=== PATIENT | female | born 1980 | race Caucasian/White ===

== ENCOUNTER 2018-12-25 18:35 | Emergency (ER) | payer MEDICAID, OTHER ==
[~2018-12-25] VITALS: Ht 157.5 cm; Wt 65.9 kg
[2018-12-25 18:51] VITALS: BP 114/64
[2018-12-25] MEDS ORDERED: BACI1PAC7 TP (20:26)
== END 2018-12-25 20:44 | disposition home or self-care (01) ==
LOC: ER 18:36
DX: L03.011 Cellulitis of right finger (principal); F17.200 Nicotine dependence, unspecified, uncomplicated; F12.90 Cannabis use, unspecified, uncomplicated; Z98.890 Other specified postprocedural states; Z79.899 Other long term (current) drug therapy
CPT/HCPCS: 99282

== ENCOUNTER 2019-01-05 15:29 | Emergency (ER) | payer MEDICAID, OTHER ==
[~2019-01-05] VITALS: Ht 157.5 cm; Wt 63.6 kg
[~2019-01-05 15:29] MED LIST: BACI1PAC7 TP
[2019-01-05 15:42] VITALS: BP 127/85
[2019-01-05] MEDS ORDERED: LIDOcaine 1% w/epiNEPHrine 1:200,000 30ml vial IM ONE (15:55)
[2019-01-05] MEDS ORDERED: CEPH-572 PO (16:07)
[2019-01-05] MEDS ORDERED: SULF1TAB49 PO (16:07)
== END 2019-01-05 16:57 | disposition home or self-care (01) ==
LOC: ER 15:30
DX: L03.011 Cellulitis of right finger (principal); F12.90 Cannabis use, unspecified, uncomplicated; Z86.14 Personal history of Methicillin resistant Staphylococcus aureus infection; Z98.890 Other specified postprocedural states; Z79.2 Long term (current) use of antibiotics
CPT/HCPCS: 10060; 99283; J3490

== ENCOUNTER 2019-01-10 12:04 | Emergency (ER) | payer MEDICAID, OTHER ==
[~2019-01-10 12:04] MED LIST changes: +CEPH-572 PO; +SULF1TAB49 PO
--- NOTE | 2019-01-10 13:41 | NUR ---
NIL 1239 NIL 1255 NIL 1332
[2019-01-10] MEDS ORDERED: HYDR-3965 PO (17:39)
== END 2019-01-10 14:12 | disposition left against medical advice (07) ==
LOC: ER 12:05
DX: Z53.21 Procedure and treatment not carried out due to patient leaving prior to being seen by health care provider (principal)

== ENCOUNTER 2019-01-10 14:18 | Emergency (ER) | payer MEDICAID, OTHER ==
[~2019-01-10] VITALS: Ht 157.5 cm; Wt 65.0 kg
[2019-01-10 15:23] VITALS: BP 110/70
[2019-01-10 16:15] LABS: BASOPHILS % (AUTO) 0.5 % (0-1); EOSINOPHILS # (AUTO) 0.1 X10'3 (0-0.9); EOSINOPHILS % (AUTO) 1.3 % (0-6); HEMATOCRIT 33.6 % (35.0-45.0); HEMOGLOBIN 10.9 g/dl (12.0-16.0); LYMPHOCYTES # (AUTO) 1.7 X10'3 (1.1-4.8); LYMPHOCYTES % (AUTO) 42.4 % (21-51); MEAN CORPUSCULAR HEMOGLOBIN 33.4 PG (27.0-31.0); MEAN CORPUSCULAR HGB CONC 32.4 g/dL (33.0-36.5); MEAN CORPUSCULAR VOLUME 103.3 FL (78-98); MEAN PLATELET VOLUME 7.5 FL (7.4-10.4); MONOCYTES # (AUTO) 0.3 X10'3 (0-0.9); MONOCYTES % (AUTO) 7.8 % (2-12); NEUTROPHILS # (AUTO) 1.8 X10'3 (1.8-7.7); PLATELET COUNT 56 X10'3 (140-440); RED BLOOD COUNT 3.25 X10'6 (4.20-5.60); RED CELL DISTRIBUTION WIDTH 15.5 % (11.5-14.5); WHITE BLOOD COUNT 3.9 X10'3 (4.5-11.0)
[2019-01-10 16:31] LABS: ALANINE AMINOTRANSFERASE 21 U/L (12-78); ALBUMIN 3.9 G/DL (3.4-5.0); ALBUMIN/GLOBULIN RATIO 1.1 (1.1-1.5); ALKALINE PHOSPHATASE 120 IU/L (46-116); ANION GAP 11 (8-16); ASPARTATE AMINO TRANSFERASE 9 U/L (10-37); BILIRUBIN,TOTAL 0.5 MG/DL (0.1-1.0); BLOOD UREA NITROGEN 9 MG/DL (7-18); BUN/CREATININE RATIO 10.6 (6.6-38.0); CALCIUM 9.3 MG/DL (8.5-10.1); CHLORIDE 95 MMOL/L (99-107); CREATININE 0.85 MG/DL (0.40-0.90); GLUCOSE 369 MG/DL (70-104); POTASSIUM 4.4 MMOL/L (3.5-5.1); SODIUM 131 MMOL/L (135-145); TOTAL CARBON DIOXIDE 24.8 MMOL/L (24-32); TOTAL PROTEIN 7.4 G/DL (6.4-8.2); eGFR 76 ML/MIN
[2019-01-10 16:48] LABS: INR 0.9 INR; PARTIAL THROMBOPLASTIN TIME 23 SECONDS (22-32); PROTHROMBIN TIME 9.6 SECONDS (9.0-12.0)
[2019-01-10] MEDS ORDERED: HYDR-3965 PO (17:39)
== END 2019-01-10 18:08 | disposition home or self-care (01) ==
LOC: ER 14:18
DX: L02.511 Cutaneous abscess of right hand (principal); F12.10 Cannabis abuse, uncomplicated; Z86.14 Personal history of Methicillin resistant Staphylococcus aureus infection
CPT/HCPCS: 26010; 36415; 71045; 73140; 80053; 83605; 84145; 85025; 85610; 85730; 87040; 99284

== ENCOUNTER 2019-01-12 14:02 | Emergency (ER) | payer MEDICAID, OTHER ==
[~2019-01-12] VITALS: Ht 157.5 cm; Wt 65.9 kg
[~2019-01-12 14:02] MED LIST changes: +HYDR-3965 PO
== END 2019-01-12 16:30 | disposition home or self-care (01) ==
LOC: ER 14:03
DX: L02.511 Cutaneous abscess of right hand (principal); Z48.01 Encounter for change or removal of surgical wound dressing; Z86.14 Personal history of Methicillin resistant Staphylococcus aureus infection; F12.90 Cannabis use, unspecified, uncomplicated; Z98.890 Other specified postprocedural states; Z79.899 Other long term (current) drug therapy
CPT/HCPCS: 99281

== ENCOUNTER 2019-01-18 17:45 | Emergency (ER) | payer MEDICAID, OTHER ==
[~2019-01-18] VITALS: Ht 157.5 cm; Wt 65.0 kg
[~2019-01-18 17:45] MED LIST changes: -CEPH-572 PO; -HYDR-3965 PO; -SULF1TAB49 PO
[2019-01-18] MEDS ORDERED: silver sulfadiazine cream 400gm jar TP STA (20:34)
[2019-01-18] MEDS ORDERED: bacitracin 15gm ointment TP ONE (20:35)
[2019-01-18] MEDS ORDERED: DOXY100C2 PO (20:56)
[2019-01-18 21:20] VITALS: BP 96/60
== END 2019-01-18 21:22 | disposition home or self-care (01) ==
LOC: ER 17:45
DX: L03.011 Cellulitis of right finger (principal); F12.90 Cannabis use, unspecified, uncomplicated; Z86.14 Personal history of Methicillin resistant Staphylococcus aureus infection
CPT/HCPCS: 99283

== ENCOUNTER 2019-01-25 11:01 | Emergency (ER) | payer OTHER ==
[~2019-01-25] VITALS: Ht 157.5 cm; Wt 65.0 kg
[~2019-01-25 11:01] MED LIST changes: +DOXY100C2 PO
[2019-01-25 11:14] VITALS: BP 95/58
[2019-01-25] MEDS ORDERED: CLIN150C2 PO (12:18)
[2019-01-25] MEDS ORDERED: DIPH-405 PO (14:15)
[2019-01-25] MEDS ORDERED: NAPR220T67 PO (14:15)
== END 2019-01-25 12:28 | disposition home or self-care (01) ==
LOC: ER 11:02
DX: M79.644 Pain in right finger(s) (principal); Z86.14 Personal history of Methicillin resistant Staphylococcus aureus infection; F12.90 Cannabis use, unspecified, uncomplicated; Z98.890 Other specified postprocedural states; Z79.899 Other long term (current) drug therapy
CPT/HCPCS: 73140; 99283

== ENCOUNTER 2019-01-25 13:19 | Inpatient (IN) | payer OTHER | END 2019-02-04 14:45 | disposition home or self-care (01) | LOC: ER 13:19 → ED HOLD 15:15 → ORTHO 4S 16:50 ==

== ENCOUNTER 2019-02-20 10:00 | Day surgery (SDC) | payer MEDICAID ==
[~2019-02-20 10:00] MED LIST changes: -BACI1PAC7 TP; +BACI28.42 TP; +CLIN150C2 PO; +DIPH-405 PO; -DOXY100C2 PO; +FLUC100T9 PO; +FOLI1TAB16 PO; +INSU100V11 SQ; +LACT1CAP26 PO; +LANC-571 TOP; +LANTUS SQ; +NAPR220T67 PO; +[UNRECOGNIZED DRUG - CODE] SQ
[2019-02-20] MEDS ORDERED: METF500T PO (10:35)
[2019-02-20] MEDS ORDERED: LIDOcaine/PRILOcaine 5gm cream TP ONE (12:01)
--- NOTE | 2019-02-20 12:30 | NUR ---
Patient ambulated independently accompanied by her from [facility] and was admitted to outpatient wound care for physician visit with Alfredo Hawkins MD. Dressing removed, wound cleansed. New patient assessment completed with review of patient's medical history and current medications. 1058 - blood glucose 169. Patient instructed that elevated blood sugars delay healing of the wound and can cause further complications including but not limited to amputation of toes or feet. 1155 - Dr. Hawkins at bedside accompanied by RN. Wound assessed, time out performed by MD/RN. Wound debrided as detailed in the physician progress/procedure note. Plan of care discussed with patient. Dressings placed per MD orders. Patient instructed on the signs and symptoms of infection and to call the Wound Center if any occur or to go to the ED if we are closed: Increased pain in wound Increase in drainage from the wound Redness in the skin surrounding the wound Bleeding from the wound Temperature of 101 or greater Patient instructed that the weight of their body puts a large amount of pressure on their wounds. This pressure keeps the new tissue from growing and inhibits new blood vessels from forming. Explained that, if they continue to bear weight on a body part that has a wound, the time it takes to heal the wound increases, the wound may get worse or the wound may not heal at all. Patient verbalized understanding of all discharge instructions and plan of care and ambulated independently accompanied by her out to [facility] in stable condition with no sign or symptom of distress at time of discharge.
== END 2019-02-20 12:16 | disposition home or self-care (01) ==
LOC: WOUND CARE 10:00
PROVIDERS: ATTEND Surgery
DX: E11.622 Type 2 diabetes mellitus with other skin ulcer (principal); L98.492 Non-pressure chronic ulcer of skin of other sites with fat layer exposed; E11.65 Type 2 diabetes mellitus with hyperglycemia; E11.40 Type 2 diabetes mellitus with diabetic neuropathy, unspecified; E11.52 Type 2 diabetes mellitus with diabetic peripheral angiopathy with gangrene; I96 Gangrene, not elsewhere classified; E11.69 Type 2 diabetes mellitus with other specified complication; M86.141 Other acute osteomyelitis, right hand; F17.210 Nicotine dependence, cigarettes, uncomplicated; F12.10 Cannabis abuse, uncomplicated; Z79.2 Long term (current) use of antibiotics; Z79.899 Other long term (current) drug therapy; Z71.6 Tobacco abuse counseling
CPT/HCPCS: 36416; 82948; A6021; A6206

== ENCOUNTER 2019-02-27 09:39 | Day surgery (SDC) | payer MEDICAID ==
[~2019-02-27 09:39] MED LIST changes: -INSU100V11 SQ; -LANTUS SQ; +METF500T PO
[2019-02-27] MEDS ORDERED: LIDOcaine/PRILOcaine 5gm cream TP ONE (09:57)
--- NOTE | 2019-02-27 11:15 | NUR ---
Patient ambulated independently from [facility] accompanied by her and was admitted to outpatient wound care for physician visit with Alfredo Hawkins MD. Dressing removed, wound cleansed and Emla cream applied per order. Patient assessed for changes in conditions, medications and medical history. 1025 - Dr. Hawkins at bedside accompanied by RN. Wound assessed, time out performed by MD/RN. Wound debrided as detailed in the physician progress/procedure note. Plan of care discussed with patient. Dressings placed per MD orders. Patient instructed on the signs and symptoms of infection and to call the Wound Center if any occur or to go to the ED if we are closed: Increased pain in wound Increase in drainage from the wound Redness in the skin surrounding the wound Bleeding from the wound Temperature of 101 or greater Patient instructed that the weight of their body puts a large amount of pressure on their wounds. This pressure keeps the new tissue from growing and inhibits new blood vessels from forming. Explained that, if they continue to bear weight on a body part that has a wound, the time it takes to heal the wound increases, the wound may get worse or the wound may not heal at all. Patient verbalized understanding of all discharge instructions and plan of care and ambulated independently out to [facility] accompanied by and is in stable condition with no sign or symptom of distress at time of discharge.
--- NOTE | 2019-02-27 15:22 | NUR ---
Blood glucose not assessed today. Addendum: 02/27/19 at 1522 by Gabby Sen RN Amended: Links added.
== END 2019-02-27 11:07 | disposition home or self-care (01) ==
LOC: WOUND CARE 09:39
PROVIDERS: ATTEND Surgery
DX: E11.622 Type 2 diabetes mellitus with other skin ulcer (principal); L98.492 Non-pressure chronic ulcer of skin of other sites with fat layer exposed; L03.011 Cellulitis of right finger; L03.012 Cellulitis of left finger; E11.65 Type 2 diabetes mellitus with hyperglycemia; E11.40 Type 2 diabetes mellitus with diabetic neuropathy, unspecified; E11.52 Type 2 diabetes mellitus with diabetic peripheral angiopathy with gangrene; I96 Gangrene, not elsewhere classified; E11.69 Type 2 diabetes mellitus with other specified complication; M86.141 Other acute osteomyelitis, right hand; F17.210 Nicotine dependence, cigarettes, uncomplicated; F12.10 Cannabis abuse, uncomplicated; Z79.2 Long term (current) use of antibiotics; Z79.899 Other long term (current) drug therapy; Z71.6 Tobacco abuse counseling
CPT/HCPCS: A6021; A6206

== ENCOUNTER 2019-03-06 09:56 | Day surgery (SDC) | payer MEDICAID ==
[2019-03-06] MEDS ORDERED: LIDOcaine/PRILOcaine 5gm cream TP ONE ×2 (10:14→10:50)
--- NOTE | 2019-03-06 11:30 | NUR ---
Patient ambulated independently accompanied by from [facility] and was admitted to outpatient wound care for physician visit with Alfredo Hawkins MD. Dressing removed, wound cleansed and Emla cream applied per order. Patient assessed for changes in conditions, medications and medical history. 1040 - blood glucose 211. Patient instructed that elevated blood sugars delay healing of the wound and can cause further complications including but not limited to amputation of toes or feet. 1044 - Dr. Hawkins at bedside accompanied by RN. Wound assessed, time out performed by MD/RN. Wound debrided as detailed in the physician progress/procedure note. Plan of care discussed with patient. Dressings placed per MD orders. Patient instructed on the signs and symptoms of infection and to call the Wound Center if any occur or to go to the ED if we are closed: Increased pain in wound Increase in drainage from the wound Redness in the skin surrounding the wound Bleeding from the wound Temperature of 101 or greater Patient instructed that the weight of their body puts a large amount of pressure on their wounds. This pressure keeps the new tissue from growing and inhibits new blood vessels from forming. Explained that, if they continue to bear weight on a body part that has a wound, the time it takes to heal the wound increases, the wound may get worse or the wound may not heal at all. Patient verbalized understanding of all discharge instructions and plan of care and ambulated independently accompanied by out to [facility] in stable condition with no sign or symptom of distress at time of discharge.
== END 2019-03-06 11:22 | disposition home or self-care (01) ==
LOC: WOUND CARE 09:56
PROVIDERS: ATTEND Surgery
DX: E11.622 Type 2 diabetes mellitus with other skin ulcer (principal); L98.492 Non-pressure chronic ulcer of skin of other sites with fat layer exposed; L03.011 Cellulitis of right finger; L03.012 Cellulitis of left finger; E11.65 Type 2 diabetes mellitus with hyperglycemia; E11.40 Type 2 diabetes mellitus with diabetic neuropathy, unspecified; E11.52 Type 2 diabetes mellitus with diabetic peripheral angiopathy with gangrene; I96 Gangrene, not elsewhere classified; E11.69 Type 2 diabetes mellitus with other specified complication; M86.141 Other acute osteomyelitis, right hand; F17.210 Nicotine dependence, cigarettes, uncomplicated; Z79.2 Long term (current) use of antibiotics; Z79.899 Other long term (current) drug therapy; Z71.6 Tobacco abuse counseling
CPT/HCPCS: 36416; 82948; A6206

== ENCOUNTER 2019-03-13 09:54 | Day surgery (SDC) | payer MEDICAID ==
[~2019-03-13 09:54] MED LIST changes: -CLIN150C2 PO
[2019-03-13] MEDS ORDERED: LIDOcaine/PRILOcaine 5gm cream TP ONE (10:34)
--- NOTE | 2019-03-13 12:34 | NUR ---
Patient ambulated independently accompanied by from [facility] and was admitted to outpatient wound care for physician visit with Alfredo Hawkins MD. Dressing removed, wound cleansed and Emla cream applied per order. Patient assessed for changes in conditions, medications and medical history. 1045 - blood glucose 226. Patient instructed that elevated blood sugars delay healing of the wound and can cause further complications including but not limited to amputation of toes or feet. 1045 - Dr. Hawkins at bedside accompanied by RN. Wound assessed, time out performed by MD/RN. Wound debrided as detailed in the physician progress/procedure note. Plan of care discussed with patient. Dressings placed per MD orders. Patient instructed on the signs and symptoms of infection and to call the Wound Center if any occur or to go to the ED if we are closed: Increased pain in wound Increase in drainage from the wound Redness in the skin surrounding the wound Bleeding from the wound Temperature of 101 or greater Patient instructed that the weight of their body puts a large amount of pressure on their wounds. This pressure keeps the new tissue from growing and inhibits new blood vessels from forming. Explained that, if they continue to bear weight on a body part that has a wound, the time it takes to heal the wound increases, the wound may get worse or the wound may not heal at all. Patient verbalized understanding of all discharge instructions and plan of care and ambulated independently accompanied by out to [facility] in stable condition with no sign or symptom of distress at time of discharge.
== END 2019-03-13 11:41 | disposition home or self-care (01) ==
LOC: WOUND CARE 09:54
PROVIDERS: ATTEND Surgery
DX: E11.622 Type 2 diabetes mellitus with other skin ulcer (principal); L98.492 Non-pressure chronic ulcer of skin of other sites with fat layer exposed; L03.011 Cellulitis of right finger; E11.65 Type 2 diabetes mellitus with hyperglycemia; E11.40 Type 2 diabetes mellitus with diabetic neuropathy, unspecified; E11.52 Type 2 diabetes mellitus with diabetic peripheral angiopathy with gangrene; I96 Gangrene, not elsewhere classified; E11.69 Type 2 diabetes mellitus with other specified complication; M86.141 Other acute osteomyelitis, right hand; F17.210 Nicotine dependence, cigarettes, uncomplicated; Z79.2 Long term (current) use of antibiotics; Z79.899 Other long term (current) drug therapy; Z71.6 Tobacco abuse counseling
CPT/HCPCS: 36416; 82948; 97597; A6021; A6206

== ENCOUNTER 2019-03-20 09:50 | Day surgery (SDC) | payer MEDICAID ==
--- NOTE | 2019-03-20 15:17 | NUR ---
Patient ambulated independently from [facility] and was admitted to outpatient wound care for physician visit with Alfredo Hawkins MD. Dressing removed, wound cleansed and lidocaine applied per order. Patient assessed for changes in conditions, medications and medical history. Dr. Hawkins at bedside accompanied by RN. Wound assessed, time out performed by MD/RN. Wound debrided as detailed in the physician progress/procedure note. Plan of care discussed with patient. Dressings placed per MD orders. Patient instructed on the signs and symptoms of infection and to call the Wound Center if any occur or to go to the ED if we are closed: Increased pain in wound Increase in drainage from the wound Redness in the skin surrounding the wound Bleeding from the wound Temperature of 101 or greater Patient instructed that elevated blood sugars delay healing of the wound and can cause further complications including but not limited to amputation of toes or feet. Patient instructed that the weight of their body puts a large amount of pressure on their wounds. This pressure keeps the new tissue from growing and inhibits new blood vessels from forming. Explained that, if they continue to bear weight on a body part that has a wound, the time it takes to heal the wound increases, the wound may get worse or the wound may not heal at all. Patient verbalized understanding of all discharge instructions and plan of care and ambulated independently out to [facility] in stable condition with no sign or symptom of distress at time of discharge. Addendum: 03/20/19 at 1518 by Amanda Mckenzie RN Amended: Links added.
== END 2019-03-20 11:05 | disposition home or self-care (01) ==
LOC: WOUND CARE 09:50
PROVIDERS: ATTEND Surgery
DX: E11.622 Type 2 diabetes mellitus with other skin ulcer (principal); L98.492 Non-pressure chronic ulcer of skin of other sites with fat layer exposed; L03.011 Cellulitis of right finger; L03.012 Cellulitis of left finger; E11.65 Type 2 diabetes mellitus with hyperglycemia; E11.40 Type 2 diabetes mellitus with diabetic neuropathy, unspecified; E11.52 Type 2 diabetes mellitus with diabetic peripheral angiopathy with gangrene; I96 Gangrene, not elsewhere classified; E11.69 Type 2 diabetes mellitus with other specified complication; M86.141 Other acute osteomyelitis, right hand; F17.210 Nicotine dependence, cigarettes, uncomplicated; Z79.2 Long term (current) use of antibiotics; Z79.899 Other long term (current) drug therapy; Z71.6 Tobacco abuse counseling
CPT/HCPCS: 36416; 82948; 97597; A6021; A6206

== ENCOUNTER 2019-03-27 09:50 | Day surgery (SDC) | payer MEDICAID ==
--- NOTE | 2019-03-27 15:20 | NUR ---
Patient ambulated independently from [facility] and was admitted to outpatient wound care for physician visit with Alfredo Hawkins MD. Dressing removed and wound cleansed. Patient assessed for changes in conditions, medications and medical history. Dr. Hawkins at bedside accompanied by RN. Wound assessed, time out performed by MD/RN. Wound debrided as detailed in the physician progress/procedure note. Plan of care discussed with patient. Dressings placed per MD orders. Patient instructed on the signs and symptoms of infection and to call the Wound Center if any occur or to go to the ED if we are closed: Increased pain in wound Increase in drainage from the wound Redness in the skin surrounding the wound Bleeding from the wound Temperature of 101 or greater Patient instructed that the weight of their body puts a large amount of pressure on their wounds. This pressure keeps the new tissue from growing and inhibits new blood vessels from forming. Explained that, if they continue to bear weight on a body part that has a wound, the time it takes to heal the wound increases, the wound may get worse or the wound may not heal at all. Patient verbalized understanding of all discharge instructions and plan of care and ambulated independently out to [facility] in stable condition with no sign or symptom of distress at time of discharge. Addendum: 03/27/19 at 1522 by Amanda Mckenzie RN Amended: Links added.
== END 2019-03-27 11:05 | disposition home or self-care (01) ==
LOC: WOUND CARE 09:50
PROVIDERS: ATTEND Surgery
DX: E11.622 Type 2 diabetes mellitus with other skin ulcer (principal); L98.492 Non-pressure chronic ulcer of skin of other sites with fat layer exposed; L03.011 Cellulitis of right finger; E11.65 Type 2 diabetes mellitus with hyperglycemia; E11.40 Type 2 diabetes mellitus with diabetic neuropathy, unspecified; E11.52 Type 2 diabetes mellitus with diabetic peripheral angiopathy with gangrene; I96 Gangrene, not elsewhere classified; E11.69 Type 2 diabetes mellitus with other specified complication; M86.141 Other acute osteomyelitis, right hand; F17.210 Nicotine dependence, cigarettes, uncomplicated; Z79.2 Long term (current) use of antibiotics; Z79.899 Other long term (current) drug therapy; Z71.6 Tobacco abuse counseling
CPT/HCPCS: 36416; 82948; 97597; A6021; A6206; A6212

== ENCOUNTER 2019-04-03 09:56 | Day surgery (SDC) | payer MEDICAID ==
--- NOTE | 2019-04-03 11:00 | NUR ---
Patient ambulated independently from [facility] accompanied by and was admitted to outpatient wound care for physician visit with Alfredo Hawkins MD. Dressing removed, wound cleansed. Patient assessed for changes in conditions, medications and medical history. 1025 - blood glucose 244. Patient instructed that elevated blood sugars delay healing of the wound and can cause further complications including but not limited to amputation of toes or feet. 1040 - Dr. Hawkins at bedside accompanied by RN. Wound assessed, time out performed by MD/RN. Wound debrided as detailed in the physician progress/procedure note. Plan of care discussed with patient. Dressings placed per MD orders. Patient instructed on the signs and symptoms of infection and to call the Wound Center if any occur or to go to the ED if we are closed: Increased pain in wound Increase in drainage from the wound Redness in the skin surrounding the wound Bleeding from the wound Temperature of 101 or greater Patient instructed that the weight of their body puts a large amount of pressure on their wounds. This pressure keeps the new tissue from growing and inhibits new blood vessels from forming. Explained that, if they continue to bear weight on a body part that has a wound, the time it takes to heal the wound increases, the wound may get worse or the wound may not heal at all. Patient verbalized understanding of all discharge instructions and plan of care and ambulated independently accompanied out to [facility] in stable condition with no sign or symptom of distress at time of discharge.
== END 2019-04-03 11:25 | disposition home or self-care (01) ==
LOC: WOUND CARE 09:56
PROVIDERS: ATTEND Surgery
DX: E11.622 Type 2 diabetes mellitus with other skin ulcer (principal); L98.492 Non-pressure chronic ulcer of skin of other sites with fat layer exposed; L03.012 Cellulitis of left finger; E11.65 Type 2 diabetes mellitus with hyperglycemia; E11.40 Type 2 diabetes mellitus with diabetic neuropathy, unspecified; E11.52 Type 2 diabetes mellitus with diabetic peripheral angiopathy with gangrene; I96 Gangrene, not elsewhere classified; E11.69 Type 2 diabetes mellitus with other specified complication; M86.141 Other acute osteomyelitis, right hand; F17.210 Nicotine dependence, cigarettes, uncomplicated; Z79.2 Long term (current) use of antibiotics; Z79.899 Other long term (current) drug therapy; Z71.6 Tobacco abuse counseling
CPT/HCPCS: 36416; 82948; 97597; A6021; A6206

== ENCOUNTER 2019-04-10 09:45 | Day surgery (SDC) | payer MEDICAID ==
--- NOTE | 2019-04-10 11:15 | NUR ---
Patient ambulated independently from [facility] accompanied by and was admitted to outpatient wound care for physician visit with Alfredo Hawkins MD. Dressing removed, wound cleansed and lidocaine applied per order. Patient assessed for changes in conditions, medications and medical history. 1035 - Dr. Hawkins at bedside accompanied by RN. Wound assessed, time out performed by MD/RN. Wound debrided as detailed in the physician progress/procedure note. Plan of care discussed with patient. Dressings placed per MD orders. Patient instructed on the signs and symptoms of infection and to call the Wound Center if any occur or to go to the ED if we are closed: Increased pain in wound Increase in drainage from the wound Redness in the skin surrounding the wound Bleeding from the wound Temperature of 101 or greater Patient instructed that the weight of their body puts a large amount of pressure on their wounds. This pressure keeps the new tissue from growing and inhibits new blood vessels from forming. Explained that, if they continue to bear weight on a body part that has a wound, the time it takes to heal the wound increases, the wound may get worse or the wound may not heal at all. Patient verbalized understanding of all discharge instructions and plan of care and ambulated independently accompanied by out to [facility] in stable condition with no sign or symptom of distress at time of discharge.
== END 2019-04-10 11:14 | disposition home or self-care (01) ==
LOC: WOUND CARE 09:45
PROVIDERS: ATTEND Surgery
DX: E11.622 Type 2 diabetes mellitus with other skin ulcer (principal); L98.492 Non-pressure chronic ulcer of skin of other sites with fat layer exposed; L03.012 Cellulitis of left finger; E11.65 Type 2 diabetes mellitus with hyperglycemia; E11.40 Type 2 diabetes mellitus with diabetic neuropathy, unspecified; E11.52 Type 2 diabetes mellitus with diabetic peripheral angiopathy with gangrene; I96 Gangrene, not elsewhere classified; E11.69 Type 2 diabetes mellitus with other specified complication; M86.141 Other acute osteomyelitis, right hand; F17.210 Nicotine dependence, cigarettes, uncomplicated; Z79.2 Long term (current) use of antibiotics; Z79.899 Other long term (current) drug therapy; Z71.6 Tobacco abuse counseling
CPT/HCPCS: 97597; A6021; A6206

== ENCOUNTER 2019-04-17 09:43 | Day surgery (SDC) | payer MEDICAID ==
--- NOTE | 2019-04-17 11:40 | NUR ---
Patient ambulated independently accompanied by spouse from [facility] and was admitted to outpatient wound care for physician visit with Alfredo Hawkins MD. Dressing removed, wound cleansed and lidocaine applied per order. Patient assessed for changes in conditions, medications and medical history. 1021 - blood glucose 241. Patient instructed that elevated blood sugars delay healing of the wound and can cause further complications including but not limited to amputation of toes or feet. 1050 - Dr. Hawkins at bedside accompanied by RN. Wound assessed, time out performed by MD/RN. Wound debrided as detailed in the physician progress/procedure note. Plan of care discussed with patient. Dressings placed per MD orders. Patient instructed on the signs and symptoms of infection and to call the Wound Center if any occur or to go to the ED if we are closed: Increased pain in wound Increase in drainage from the wound Redness in the skin surrounding the wound Bleeding from the wound Temperature of 101 or greater Patient instructed that the weight of their body puts a large amount of pressure on their wounds. This pressure keeps the new tissue from growing and inhibits new blood vessels from forming. Explained that, if they continue to bear weight on a body part that has a wound, the time it takes to heal the wound increases, the wound may get worse or the wound may not heal at all. Patient verbalized understanding of all discharge instructions and plan of care and ambulated independently accompanied by spouse out to [facility] in stable condition with no sign or symptom of distress at time of discharge.
== END 2019-04-17 11:25 | disposition home or self-care (01) ==
LOC: WOUND CARE 09:43
PROVIDERS: ATTEND Surgery
DX: E11.622 Type 2 diabetes mellitus with other skin ulcer (principal); L98.492 Non-pressure chronic ulcer of skin of other sites with fat layer exposed; L03.012 Cellulitis of left finger; E11.65 Type 2 diabetes mellitus with hyperglycemia; E11.40 Type 2 diabetes mellitus with diabetic neuropathy, unspecified; E11.52 Type 2 diabetes mellitus with diabetic peripheral angiopathy with gangrene; I96 Gangrene, not elsewhere classified; E11.69 Type 2 diabetes mellitus with other specified complication; M86.141 Other acute osteomyelitis, right hand; F17.210 Nicotine dependence, cigarettes, uncomplicated; Z79.2 Long term (current) use of antibiotics; Z79.899 Other long term (current) drug therapy; Z71.6 Tobacco abuse counseling
CPT/HCPCS: 36416; 82948; 97597; A6021; A6206

== ENCOUNTER 2019-04-24 09:45 | Day surgery (SDC) | payer MEDICAID ==
[2019-04-24] MEDS ORDERED: LIDOcaine/PRILOcaine 5gm cream TP ONE (10:17)
--- NOTE | 2019-04-24 11:00 | NUR ---
Patient ambulated independently accompanied by from [facility] and was admitted to outpatient wound care for physician visit with Alfredo Hawkins MD. Dressing removed, wound cleansed and Emla cream applied per order. Patient assessed for changes in conditions, medications and medical history. 1016 - blood glucose 292. Patient instructed that elevated blood sugars delay healing of the wound and can cause further complications including but not limited to amputation of toes or feet. 1025 - Dr. Hawkins at bedside accompanied by RN. Wound assessed by MD, orders written. Plan of care discussed with patient. Dressings placed per MD orders. Patient instructed on the signs and symptoms of infection and to call the Wound Center if any occur or to go to the ED if we are closed: Increased pain in wound Increase in drainage from the wound Redness in the skin surrounding the wound Bleeding from the wound Temperature of 101 or greater Patient instructed that the weight of their body puts a large amount of pressure on their wounds. This pressure keeps the new tissue from growing and inhibits new blood vessels from forming. Explained that, if they continue to bear weight on a body part that has a wound, the time it takes to heal the wound increases, the wound may get worse or the wound may not heal at all. Patient verbalized understanding of all discharge instructions and plan of care and ambulated independently accompanied by out to [facility] in stable condition with no sign or symptom of distress at time of discharge.
== END 2019-04-24 11:10 | disposition home or self-care (01) ==
LOC: WOUND CARE 09:45
PROVIDERS: ATTEND Surgery
DX: E11.622 Type 2 diabetes mellitus with other skin ulcer (principal); L98.492 Non-pressure chronic ulcer of skin of other sites with fat layer exposed; L03.012 Cellulitis of left finger; E11.65 Type 2 diabetes mellitus with hyperglycemia; E11.40 Type 2 diabetes mellitus with diabetic neuropathy, unspecified; E11.52 Type 2 diabetes mellitus with diabetic peripheral angiopathy with gangrene; I96 Gangrene, not elsewhere classified; E11.69 Type 2 diabetes mellitus with other specified complication; M86.141 Other acute osteomyelitis, right hand; F17.210 Nicotine dependence, cigarettes, uncomplicated; Z79.2 Long term (current) use of antibiotics; Z79.899 Other long term (current) drug therapy; Z71.6 Tobacco abuse counseling
CPT/HCPCS: 36416; 82948; G0463; A6021; A6206

== ENCOUNTER 2019-05-01 09:35 | Outpatient (CLI) | payer MEDICAID ==
--- NOTE | 2019-05-01 10:45 | NUR ---
Patient ambulated independently accompanied by from [facility] and was admitted to outpatient wound care for physician visit with Alfredo Hawkins MD. Dressing removed, wound cleansed. Patient assessed for changes in conditions, medications and medical history. 1009 - blood glucose 209. Patient instructed that elevated blood sugars delay healing of the wound and can cause further complications including but not limited to amputation of toes or feet. 1040 - Dr. Hawkins at bedside accompanied by RN. Wound assessed by and is declared healed; patient is discharged from the wound clinic to follow up on an as needed basis. Plan of care discussed with patient. No dressing ordered or placed. Patient instructed on the signs and symptoms of infection and to call the Wound Center if any occur or to go to the ED if we are closed: Increased pain in wound Increase in drainage from the wound Redness in the skin surrounding the wound Bleeding from the wound Temperature of 101 or greater Patient instructed that the weight of their body puts a large amount of pressure on their wounds. This pressure keeps the new tissue from growing and inhibits new blood vessels from forming. Explained that, if they continue to bear weight on a body part that has a wound, the time it takes to heal the wound increases, the wound may get worse or the wound may not heal at all. Patient verbalized understanding of all discharge instructions and plan of care and ambulated independently accompanied by out to [facility] in stable condition with no sign or symptom of distress at time of discharge.
== END 2019-05-01 10:45 | disposition home or self-care (01) ==
LOC: WOUND CARE 09:35 → EDSTATUS 10:00 → WOUND CARE 10:45
PROVIDERS: ATTEND Surgery
DX: E11.622 Type 2 diabetes mellitus with other skin ulcer (principal); L98.492 Non-pressure chronic ulcer of skin of other sites with fat layer exposed; L03.012 Cellulitis of left finger; E11.65 Type 2 diabetes mellitus with hyperglycemia; E11.40 Type 2 diabetes mellitus with diabetic neuropathy, unspecified; E11.52 Type 2 diabetes mellitus with diabetic peripheral angiopathy with gangrene; I96 Gangrene, not elsewhere classified; E11.69 Type 2 diabetes mellitus with other specified complication; M86.141 Other acute osteomyelitis, right hand; F17.210 Nicotine dependence, cigarettes, uncomplicated; Z79.2 Long term (current) use of antibiotics; Z79.899 Other long term (current) drug therapy; Z71.6 Tobacco abuse counseling
CPT/HCPCS: 36416; 82948; G0463

== ENCOUNTER 2022-01-12 19:18 | Emergency (ER) | payer MEDICAID ==
[~2022-01-12] VITALS: Ht 157.5 cm; Wt 70.4 kg
[~2022-01-12 19:18] MED LIST changes: -DIPH-405 PO; +FLUC100T64 PO; -FLUC100T9 PO; -FOLI1TAB16 PO; +FOLI1TAB27 PO; +[UNRECOGNIZED DRUG - CODE] PO
[2022-01-12] MEDS ORDERED: TETanus/Pertussis (Acell)/Diphther VAC/PF (Tdap-Adult) 0.5ml syringe IMVAC ONE (19:40)
[2022-01-12 21:34] VITALS: BP 164/88
== END 2022-01-12 21:37 | disposition home or self-care (01) ==
LOC: ER 19:19
DX: S81.812A Laceration without foreign body, left lower leg, initial encounter (principal); F12.90 Cannabis use, unspecified, uncomplicated; Z86.14 Personal history of Methicillin resistant Staphylococcus aureus infection; Z98.890 Other specified postprocedural states; Z72.89 Other problems related to lifestyle; Z79.899 Other long term (current) drug therapy; Z20.3 Contact with and (suspected) exposure to rabies; W19.XXXA Unspecified fall, initial encounter; Y93.89 Activity, other specified; Y92.89 Other specified places as the place of occurrence of the external cause; Y99.8 Other external cause status
CPT/HCPCS: 12031; 90471; 90715; 99283; 99284

== ENCOUNTER 2022-03-28 14:53 | Emergency (ER) | payer MEDICAID ==
[~2022-03-28] VITALS: Ht 157.5 cm; Wt 68.2 kg
[~2022-03-28 14:53] MED LIST changes: +[UNRECOGNIZED DRUG - CODE] SQ; -[UNRECOGNIZED DRUG - CODE] SQ
[2022-03-28 14:55] VITALS: BP 158/95
[2022-03-28] MEDS ORDERED: PRED5DRO23 RIGHTEYE (16:57)
[2022-03-28] MEDS ORDERED: prednisoLONE acetate 1% ophth susp 5ml RIGHTEYE SCH (17:00)
== END 2022-03-28 17:21 | disposition home or self-care (01) ==
LOC: ER 14:53
DX: H20.9 Unspecified iridocyclitis (principal); H57.11 Ocular pain, right eye; R51.9 Headache, unspecified; F12.90 Cannabis use, unspecified, uncomplicated; Z86.14 Personal history of Methicillin resistant Staphylococcus aureus infection; Z98.890 Other specified postprocedural states; Z72.89 Other problems related to lifestyle; Z79.2 Long term (current) use of antibiotics; Z79.899 Other long term (current) drug therapy
CPT/HCPCS: 99283

== ENCOUNTER 2023-04-04 07:08 | Emergency (ER) | payer MEDICAID ==
[~2023-04-04] VITALS: Ht 157.5 cm; Wt 68.2 kg
[~2023-04-04 07:08] MED LIST changes: +PRED5DRO23 RIGHTEYE
[2023-04-04 07:24] LABS: BASOPHILS % (AUTO) 0.4 % (0-1); EOSINOPHILS # (AUTO) 0.2 X10'3 (0-0.9); EOSINOPHILS % (AUTO) 3.8 % (0-6); HEMATOCRIT 46.2 % (35.0-45.0); HEMOGLOBIN 15.6 g/dl (12.0-16.0); LYMPHOCYTES # (AUTO) 1.1 X10'3 (1.1-4.8); LYMPHOCYTES % (AUTO) 22.9 % (21-51); MEAN CORPUSCULAR HEMOGLOBIN 33.5 PG (27.0-31.0); MEAN CORPUSCULAR HGB CONC 33.9 g/dL (33.0-36.5); MEAN CORPUSCULAR VOLUME 98.9 FL (78-98); MONOCYTES # (AUTO) 0.5 X10'3 (0-0.9); MONOCYTES % (AUTO) 9.9 % (2-12); PLATELET COUNT 174 X10'3 (140-440); RED BLOOD COUNT 4.67 X10'6 (4.20-5.60); RED CELL DISTRIBUTION WIDTH 13.5 % (11.5-14.5); WHITE BLOOD COUNT 4.8 X10'3 (4.5-11.0)
[2023-04-04 07:52] LABS: ALANINE AMINOTRANSFERASE 31 U/L (12-78); ALBUMIN/GLOBULIN RATIO 1.1 (1.1-1.5); ALKALINE PHOSPHATASE 100 IU/L (46-116); ANION GAP 14 (8-16); ASPARTATE AMINO TRANSFERASE 19 U/L (10-37); BILIRUBIN,TOTAL 0.8 MG/DL (0.1-1.0); BLOOD UREA NITROGEN 14 MG/DL (7-18); BUN/CREATININE RATIO 14.4 (10.0-20.0); CALCIUM 9.7 MG/DL (8.5-10.1); CHLORIDE 96 MMOL/L (99-107); CREATININE 0.97 MG/DL (0.40-0.90); MAGNESIUM 2.3 MG/DL (1.5-2.4); POTASSIUM 4.7 MMOL/L (3.5-5.1); SODIUM 132 MMOL/L (135-145); TOTAL CARBON DIOXIDE 22.2 MMOL/L (24-32); TOTAL PROTEIN 7.5 G/DL (6.4-8.2); eGFR 64 ML/MIN
[2023-04-04 07:57] LABS: GLUCOSE 472 MG/DL (70-104)
[2023-04-04] MEDS ORDERED: metoclopramide 5 mg/ml inj IV ONE (09:10)
[2023-04-04] MEDS ORDERED: famotidine/PF 10 mg/ml inj IV ONE (09:10)
[2023-04-04] MEDS ORDERED: normal saline 1000ML IV soln IVB ONE (09:10)
[2023-04-04] MEDS ORDERED: insulin regular, human 10 units/0.1 ml syringe SQ ONE (10:00)
[2023-04-04] MEDS ORDERED: METF-436 PO (10:03)
[2023-04-04 10:21] VITALS: BP 149/95
== END 2023-04-04 10:23 | disposition home or self-care (01) ==
LOC: ER 07:09
DX: R07.9 Chest pain, unspecified (principal); E11.65 Type 2 diabetes mellitus with hyperglycemia; F12.10 Cannabis abuse, uncomplicated; Z79.899 Other long term (current) drug therapy; Z86.14 Personal history of Methicillin resistant Staphylococcus aureus infection
CPT/HCPCS: 36415; 71045; 80053; 82948; 83735; 83880; 84484; 85025; 93005; 96361; 96372; 96374; 99285; J1815; J3490; J7030